=== PATIENT | female | born 1985 | race African-American/Black ===

== ENCOUNTER 2018-12-14 13:45 | Emergency (ER) | payer SELFPAY | END 2018-12-14 15:42 | disposition left against medical advice (07) | LOC: FTE 13:45 | DX: Z53.21 Procedure and treatment not carried out due to patient leaving prior to being seen by health care provider (principal) ==

== ENCOUNTER 2018-12-26 10:22 | Emergency (ER) | payer MEDICAID ==
[2018-12-26] MEDS: DEXAMETHASONE 10 MG/ML 1 ML INJ PO (10:40)
== END 2018-12-26 11:08 | disposition home or self-care (01) ==
LOC: FTE 10:22
DX: J06.9 Acute upper respiratory infection, unspecified (principal)
CPT/HCPCS: 99283; J1100

== ENCOUNTER 2019-03-08 08:06 | Emergency (ER) | payer MEDICAID | END 2019-03-08 08:35 | disposition home or self-care (01) | LOC: FTE 08:35 | DX: J06.9 Acute upper respiratory infection, unspecified (principal); F17.210 Nicotine dependence, cigarettes, uncomplicated | CPT/HCPCS: 99283; Z7502 ==